=== PATIENT | male | born 2000 | race Caucasian/White ===

== ENCOUNTER 2021-03-24 08:55 | Observation (INO) | payer OTHER ==
[~2021-03-24] VITALS: Ht 188 cm; Wt 69.8 kg
[2021-03-24] VITALS (8 sets, daily range): BP systolic 104–125; BP diastolic 43–71; PULSE 56–80; TEMP 97.6–97.9
[2021-03-24] MEDS ORDERED: PYRIDIUM 100MG100 MG PO (17:22)
[2021-03-24] MEDS ORDERED: NORCO 325 MG-51 TAB PO (17:22)
--- NOTE | 2021-03-24 18:10 | NUR ---
Pt back from OR at this time, he is drowsy but arouses to voice. Verbalizes wanting to eat and drink. No pain at this time, IV to RAC infusing without complications. Family at bedside.
--- NOTE | 2021-03-24 20:50 | NUR ---
Patient awake, alert, oriented x 4, ambulating, ate 100% of dinner, tolerated well, denies nausea, discharged per MD, all discharge instructions given and patient/family verbalized understanding. Patient assisted to family car by wheelchair and staff.
== END 2021-03-24 20:00 | disposition home or self-care (01) ==
LOC: SDCO 08:55 → MEDICAL 09:00 → SDCO 17:17 → MEDICAL 17:18
PROVIDERS: ADMIT Urology
DX: N13.2 Hydronephrosis with renal and ureteral calculous obstruction (principal); F17.290 Nicotine dependence, other tobacco product, uncomplicated
CPT/HCPCS: C1769; G0378; J7030; Q9967

== ENCOUNTER 2022-06-14 17:50 | Emergency (ER) | payer BC ==
[~2022-06-14] VITALS: Ht 185.4 cm; Wt 71.4 kg
[~2022-06-14 17:50] MED LIST: NORCO 325 MG-51 TAB PO; PYRIDIUM 100MG100 MG PO
[2022-06-14 17:59] VITALS: TEMP 98
[2022-06-14 18:39] LABS: BASO % 0.3 % (0.0-2.0); EOS # 0.1 K/mm3 (0.0-0.7); EOS % 1.1 % (0.0-4.0); GRAN # 3.6 K/mm3 (1.4-6.5); GRAN % 53.8 % (42.2-75.2); HEMATOCRIT 43.1 % (42.0-52.0); LYMPH # 2.3 K/mm3 (1.2-3.4); LYMPH % 33.9 % (20.0-51.0); MEAN CELL VOLUME 87 fl (80.0-100.0); MEAN CORPUSCULAR HEMOGLOBIN 30 pg (27-31); MEAN CORPUSCULAR HGB CONC 35 g/dl (33.0-37.0); MEAN PLATELET VOLUME 9.9 fl (7.4-10.4); MONO # 0.7 K/mm3 (0.1-0.6); MONO % 10.6 % (1.7-9.3); PLATELET COUNT 232 K/mm3 (130-400); RED BLOOD COUNT 4.94 M/mm3 (4.20-5.60); REDCELL DISTRIBUTION WIDTH-CV 12.8 % (11.5-14.5)
[2022-06-14 18:57] LABS: ALBUMIN 4.4 gm/dL (3.5-5.0); BILIRUBIN,TOTAL 0.5 mg/dL (0.2-1.2); CALCIUM 9.5 mg/dL (8.4-10.2); CREATININE, serum 1.02 mg/dL (0.72-1.25); POTASSIUM 4.1 mmol/L (3.5-4.5); TOTAL PROTEIN 7.5 gm/dL (6.2-8.1)
[2022-06-14 19:45] VITALS: BP 122/70; PULSE 76
== END 2022-06-14 19:45 | disposition home or self-care (01) ==
LOC: COL.ER 17:50
PROVIDERS: Personal Emergency Response Attendant
DX: R10.9 Unspecified abdominal pain (principal); F17.290 Nicotine dependence, other tobacco product, uncomplicated; Z28.310 Unvaccinated for COVID-19
CPT/HCPCS: Q9967